=== PATIENT | male | born 1965 | race Caucasian/White ===

== ENCOUNTER → 2017-01-17 | Outpatient (CLI) | payer BC ==
[~2017-01-17] MED LIST: BND25X PO; ELUX1TAB2 PO; HYDR-3126 PO; METO-157 PO; ONDA8TAB7 PO; RANI300T2 PO; SINCALIDE INJ 1.3 MCG in SODIUM CHLORIDE 0.9% 100ML 100 ML IV ONE; SUMA100T16 PO
--- NOTE | 2017-01-17 13:11 | DIAGNOSTIC IMAGING REPORT ---
HEPATOBILIARY EF IMAGING CLINICAL HISTORY: 51 years-old Male presenting with ABD PAIN. TECHNIQUE: Dynamic imaging of the gallbladder was initiated 65 minutes after administration of 5.2 mCi of technetium 99m Choletec. Imaging was obtained every 5 minutes over a span of 40 minutes. 1.3 mcg of sincalide was injected 5 minutes prior to the start of imaging. The gallbladder ejection fraction was calculated. COMPARISON: CT from 2008.. FINDINGS: The hepatobiliary scan shows normal filling of the gallbladder at the start of imaging. Expected activity within the bowel also noted. Gallbladder ejection fraction measured at 96% (normal greater than 50%). IMPRESSION: 1. Normal gallbladder ejection fraction. No evidence of chronic cholecystitis. Electronically signed by: Angel Luis Tompkins M.D. 01/17/2017 1:10 PM Dictated Date/Time: 01/17/2017 1:08 PM
== END | disposition home or self-care (01) ==
LOC: C.NUCL 10:10
DX: R10.9 Unspecified abdominal pain (principal)

== ENCOUNTER → 2017-01-19 | Outpatient (CLI) | payer BC ==
[~2017-01-19] MED LIST changes: -SINCALIDE INJ 1.3 MCG in SODIUM CHLORIDE 0.9% 100ML 100 ML IV ONE
--- NOTE | 2017-01-19 12:44 | DIAGNOSTIC IMAGING REPORT ---
NUCLEAR GASTRIC EMPTYING STUDY HISTORY: Generalized abdominal pain. COMPARISON: Abdomen and pelvis CT 08/05/2008. TECHNIQUE: Following the oral administration of 1.1 mCi of technetium 99m sulfur colloid in egg sandwich and 8 ounces of water, static abdominal images are obtained anteriorly and posteriorly at 0 minutes, 1 hour, 2 hour, and 4 hour time intervals. Gastric emptying was calculated utilizing the geometric mean method. FINDINGS: There is approximately 78% activity remaining at the 1 hour time interval (normal is less than 90%), 41% remaining at the 2 hour time interval (normal is less than 60%), and 3% activity remaining at the 4 hour time interval (normal is less than 10%). IMPRESSION: No evidence for delayed gastric emptying. Electronically signed by: Tyson Whittington M.D. 01/19/2017 12:42 PM Dictated Date/Time: 01/19/2017 12:42 PM
== END | disposition home or self-care (01) ==
LOC: C.NUCL 08:12
DX: R10.9 Unspecified abdominal pain (principal)

== ENCOUNTER → 2017-03-17 | Outpatient (CLI) | payer BC ==
[2017-03-17 09:39] LABS: BASO % 0.2 %; BASO ABS # 0.01 K/uL (0-0.2); COMPLETE YES; EOS % 0.8 %; HEMATOCRIT 43.4 % (42-52); IG% 0.2 %; LYMPH % 30.5 %; LYMPH ABS # 1.82 K/uL (1.2-3.4); MEAN CELL VOLUME 91.2 fL (80-100); MEAN CORPUSCULAR HEMOGLOBIN 30.5 pg (25-34); MEAN CORPUSCULAR HGB CONC 33.4 g/dl (32-36); MEAN PLATELET VOLUME 10.6 fL (7.4-10.4); MONO % 6.4 %; NEUT % 61.9 %; PLATELET COUNT 271 K/uL (130-400); RED BLOOD COUNT 4.76 M/uL (4.7-6.1); WHITE BLOOD COUNT 5.96 K/uL (4.8-10.8)
[2017-03-17 10:09] LABS: ALT/SGPT 30 U/L (12-78); AMYLASE 47 U/L (25-115); BLOOD UREA NITROGEN 9 mg/dl (7-18); BUN/CREATININE RATIO 10.1 (10-20); CALCIUM 8.6 mg/dl (8.5-10.1); CARBON DIOXIDE 27 mmol/L (21-32); CHLORIDE 106 mmol/L (98-107); CREATININE 0.91 mg/dl (0.60-1.40); GLUCOSE 85 mg/dl (70-99); POTASSIUM 3.4 mmol/L (3.5-5.1); SODIUM 141 mmol/L (136-145)
[2017-03-17 10:12] LABS: ALB/GLOB RATIO 1.2 (0.9-2); ALKALINE PHOSPHATASE 63 U/L (45-117); AST/SGOT 16 U/L (15-37)
== END | disposition home or self-care (01) ==
LOC: C.LAB 07:31
DX: R10.9 Unspecified abdominal pain (principal)

== ENCOUNTER → 2017-05-18 | Outpatient (CLI) | payer BC ==
[2017-05-18 15:56] LABS: BASO % 0.2 %; BASO ABS # 0.02 K/uL (0-0.2); COMPLETE YES; EOS % 0.9 %; HEMATOCRIT 43.5 % (42-52); IG% 0.2 %; LYMPH % 31.5 %; LYMPH ABS # 2.79 K/uL (1.2-3.4); MEAN CELL VOLUME 91.6 fL (80-100); MEAN CORPUSCULAR HEMOGLOBIN 31.2 pg (25-34); MEAN PLATELET VOLUME 10.5 fL (7.4-10.4); MONO % 6.7 %; NEUT % 60.5 %; PLATELET COUNT 274 K/uL (130-400); RED BLOOD COUNT 4.75 M/uL (4.7-6.1); WHITE BLOOD COUNT 8.86 K/uL (4.8-10.8)
[2017-05-18 16:40] LABS: BLOOD UREA NITROGEN 14 mg/dl (7-18); BUN/CREATININE RATIO 16.2 (10-20); CALCIUM 8.9 mg/dl (8.5-10.1); CARBON DIOXIDE 25 mmol/L (21-32); CHLORIDE 105 mmol/L (98-107); CREATININE 0.87 mg/dl (0.60-1.40); GLUCOSE 76 mg/dl (70-99); POTASSIUM 3.8 mmol/L (3.5-5.1); SODIUM 136 mmol/L (136-145)
[2017-05-18 16:50] LABS: ALB/GLOB RATIO 1.2 (0.9-2); ALKALINE PHOSPHATASE 80 U/L (45-117); ALT/SGPT 53 U/L (12-78); AST/SGOT 22 U/L (15-37); C-REACTIVE PROTEIN < 0.29 mg/dl (0-0.29); THYROID STIMULATING HORMONE 0.325 uIu/ml (0.300-4.500)
== END | disposition home or self-care (01) ==
LOC: C.LAB 14:03
PROVIDERS: ATTEND Internal Medicine
DX: R11.2 Nausea with vomiting, unspecified (principal); R10.84 Generalized abdominal pain; R19.7 Diarrhea, unspecified

== ENCOUNTER 2018-07-24 06:51 | Observation (INO) ==
--- NOTE | 2018-07-07 08:42 | Anesthesiology Consultation ---
Date of Service July 07, 2018 Assessment & Plan (1) Encounter for pre-operative examination: Plan: - Discussed preop EKG with cardio (Dr. Graff); per verbal 07/10/18, preop EKG noting unusual p axis, possible atrial rhythm reviewed and did not feel further cardiac workup or evaluation needed. Chart Review Chart Review: Acceptable Risk for Surgery and Patient seen in Pre Admission Testing Teaching & Discussion Pre-Anesthesia Teaching/Discussion Notes: Instructed NPO after midnight before surgery,except medications with 15 cc of water. Medication instructions provided according to the PAT guidelines. History Surgery Operation Date: 07/24/18 08:20 Proposed Procedures p Laparoscopic Cholecystectomy, Possible Cholangiogram - Fracisco Izaguirre MD, FACS Height/Weight Height: 5 ft 8 in Weight: 69.1 kg Allergies Allergy/AdvReac Type Severity Reaction Status Date / Time Beta-Blockers AdvReac Unknown ADVISED TO Verified 07/07/18 08:41 (Beta-Adrenergic Bloc AVOID 2/2 MASTOCYTOSIS HX Medications Home Medications Medication Instructions Recorded Confirmed Last Taken diphenhydramine HCl [Benadryl] 50 mg PO HS #0 03/17/09 07/04/18 Unknown ondansetron HCl [Zofran] 8 mg PO TID PRN #0 tab 08/06/15 07/04/18 Unknown sumatriptan succinate 100 m PO DAILY PRN 30 Days #9 tab 08/06/15 07/04/18 Unknown hydroxyzine HCl 50 mg PO HS 30 Days #30 tab 07/16/16 07/04/18 Unknown metoclopramide HCl [Reglan] 10 mg PO Q6H PRN #6 tab 07/16/16 07/04/18 Unknown ranitidine HCl 300 mg PO BID #0 tab 07/16/16 07/04/18 Unknown Past Medical History Medical History Cyclic vomiting syndrome CONTROLLED X 1.5 WEEKS- IMPROVED WITH ZOFRAN PRN High cholesterol PER RECORDS Mastocytosis S/P MULTIPLE HOSPITALIZATIONS BETWEEN [id number]- NO RECENT ISSUES; MONITORED BY PCP Sleep apnea NON-COMPLIANT Past Surgical History Surgical History H/O vasectomy History of colonoscopy History of esophagogastroduodenoscopy (EGD) History of vascular access device 2/2 POOR VASCULAR ACCESS Past Anesthesia History No Hx of Anesthesia Complications and No Family Hx of Anesthesia Complications History of PONV No Motion Sickness Screening History of Motion Sickness: No Social History Smoking Status: Never smoker Do You Dip or Chew Tobacco: No Hx Alcohol Use: Yes Alcohol type: beer alcohol intake frequency: a few times a month Hx Substance Use: No substance use type: does not use Exercise / Class Metabolic Activity II 4-5 Yardwork/Stairs/Walk up hill Review of Systems Patient denies chest pain, shortness of breath, dyspnea on exertion, cough, wheezing, palpitations. Physical Exam Vital Signs VITALS BP 125/81 P 62 TEMP 97.8 SP02 98%RA RESP 18 PHYSICAL Full neck and c-spine range of motion. Full TMJ range of motion. TMD 3 finger breaths Mallampati Score 2 Dentition: intact Lungs: clear throughout to auscultation Cardiac: regular rate and rhythm, no murmurs noted Spine: normal Carotid arteries: negative bruit Extremities: no edema Trimmed ramirez. Testing Electrocardiogram Date: 07/07/18 Unusual p axis, possible ectopic atrial rhythm at 60bpm. Laboratory Results 07/07/18 09:08 07/07/18 09:08
--- NOTE | 2018-07-07 08:44 | PAT Medication Instructions ---
Medication Instructions Date of Service July 07, 2018 Home Medications diphenhydramine HCl [Benadryl] 50 mg PO HS ondansetron HCl [Zofran] 8 mg PO TID PRN sumatriptan succinate 100 m PO DAILY PRN hydroxyzine HCl 50 mg PO HS metoclopramide HCl [Reglan] 10 mg PO Q6H PRN ranitidine HCl 300 mg PO BID DO NOT take the morning of surgery metoclopramide HCl [Reglan] 10 mg PO Q6H PRN Take morning of surgery With a small sip of water, OTHERWISE NOTHING TO EAT OR DRINK AFTER MIDNIGHT: ondansetron HCl [Zofran] 8 mg PO TID PRN (if needed) sumatriptan succinate 100 m PO DAILY PRN (if needed) ranitidine HCl 300 mg PO BID Take evening before surgery diphenhydramine HCl [Benadryl] 50 mg PO HS ondansetron HCl [Zofran] 8 mg PO TID PRN (if needed) sumatriptan succinate 100 m PO DAILY PRN (if needed) hydroxyzine HCl 50 mg PO HS metoclopramide HCl [Reglan] 10 mg PO Q6H PRN (if needed) ranitidine HCl 300 mg PO BID Other Notes If you have any questions please call us at [phone] or [phone] or [phone] or [phone]
[2018-07-07 11:30] LABS: BUN Creatinine Ratio 17.8 (10-20); Calcium 9.1 mg/dl (8.5-10.1); Creatinine Clr Calc Pharmacy 91.9 ml/min; Est GFR (African American) 111.2; Potassium 3.8 mmol/L (3.5-5.1)
[2018-07-07 12:26] LABS: Basophils # (auto) 0.03 K/uL (0-0.2); Basophils % (auto) 0.4 %; Eosinophils # (auto) 0.05 K/uL (0-0.5); Eosinophils % (auto) 0.7 %; Hematocrit (blood only) 45.6 % (42-52); Hemoglobin 15.3 g/dL (14.0-18.0); Lymphocytes # (auto) 1.82 K/uL (1.2-3.4); Lymphocytes % (auto) 27.2 %; Mean Corpuscular Hgb Conc 33.6 g/dL (32-36); Mean Corpuscular Volume 93.1 fL (80-100); Mean Platelet Volume 11.1 fL (7.4-10.4); Monocytes # (auto) 0.47 K/uL (0.11-0.59); Neutrophils # (auto) 4.32 K/uL (1.4-6.5); Neutrophils % (auto) 64.7 %; Platelet Count 232 K/uL (130-400); RDW Standard Deviation 44.6 fL (36.4-46.3); White Blood Count 6.69 K/uL (4.8-10.8)
[~2018-07-24 06:51] MED LIST changes: -BND25X PO; -ELUX1TAB2 PO; -HYDR-3126 PO; +LR 15ML/HR IV SCH; -METO-157 PO; -ONDA8TAB7 PO; -RANI300T2 PO; -SUMA100T16 PO; +cefUROXime 1,500 MG in DEXTROSE 5% 100 ML IV SCH
[2018-07-24] MEDS ORDERED: MIDAZOLAM HCL 1 MG/ML 2ML VIAL ONE (07:39)
[2018-07-24] MEDS ORDERED: LIDOCAINE HCL 2% 2 ML VIAL/AMP(20MG/ML) INFIL ONE (07:39)
[2018-07-24] MEDS ORDERED: ROCURONIUM BROMIDE 10 MG/ML 5 ML VIAL ONE ×5 (07:39→07:40)
[2018-07-24] MEDS ORDERED: PROPOFOL IV EMULSION 10 MG/ML 20 ML VIAL IV ONE (07:39)
[2018-07-24] MEDS ORDERED: fentaNYL citrate 100 MCG/2 ML VIAL ONE ×2 (07:40→08:56)
[2018-07-24] MEDS ORDERED: ATROPINE SULFATE 0.1 MG/ML 10ML SYR IV PRN (08:14)
[2018-07-24] MEDS ORDERED: KETOROLAC 30 MG/ML VIAL IV PRN (08:14)
[2018-07-24] MEDS ORDERED: HYDROmorphone INJ 1 MG/ML SYRINGE IV PRN ×2 (08:14→11:00)
[2018-07-24] MEDS ORDERED: ONDANSETRON INJ 2 MG/ML 2 ML VIAL IV PRN (08:14)
--- NOTE | 2018-07-24 08:16 | History & Physical Bridge Note ---
Date of Service July 24, 2018 History & Physical Bridge Note I have examined the patient, reviewed the History & Physical and in the interval since the performance of the History & Physical I have noted the following changes of clinical significance: no changes noted
[2018-07-24] MEDS ORDERED: CONRAY 60% 50 ML VIAL ONE (08:27)
[2018-07-24] MEDS ORDERED: BUPIVACAINE 0.5 % 5 MG/1 ML MPF 30ML VIAL ONE (08:27)
[2018-07-24] MEDS ORDERED: DiphenhydrAMINE HCL 50 MG/ML VIAL ONE (08:48)
[2018-07-24] MEDS ORDERED: raNITIdine HCl 25 MG/ML VIAL ONE (08:48)
[2018-07-24] MEDS ORDERED: HYDROCORTISONE SOD SUCCINATE 100 MG/2 ML VIAL ONE (08:48)
[2018-07-24] MEDS ORDERED: GLYCOPYRROLATE 0.2 MG/ML VIAL ONE (09:01)
[2018-07-24] MEDS ORDERED: NEOSTIGMINE METHYLSULFATE 5 MG/5 ML SYR ONE (09:01)
--- NOTE | 2018-07-24 09:28 | Operative Report ---
Post Operative Report Pre & Post Diagnosis Operation Date: 07/24/18 08:40 Pre-Op Diagnosis: Biliary Colic Post-Op Diagnosis: Biliary Colic same and chronic cholecystitis, adhesions Procedure Operation Date: 07/24/18 08:40 Actual Procedures p Laparoscopic Cholecystectomy with Cholangiogram(Not Applicable) - Fracisco Izaguirre MD, FACS same Surgeon Fracisco Izaguirre MD, FACS [employer] Abdiel Polk Estimated Blood Loss 10 Findings Consistent with Post-Op Diagnosis Specimens gallbladder Description of Procedure see dictated note I attest to the content of the Intraoperative Record and any orders documented therein. Any exceptions are noted below.
[2018-07-24] MEDS ORDERED: ACETAMINOPHEN 1,000 MG/100 ML VIAL IV ONE (09:29)
[2018-07-24] MEDS ORDERED: ACETAMINOPHEN 1000 MG/100 ML IV IV ONE (09:59)
--- NOTE | 2018-07-24 10:10 | Fluoroscopy Report ---
[place] cholangiogram OR HISTORY: 52 years-old Male IOC intraoperative cholangiogram COMPARISON: CT abdomen and pelvis 08/05/2008 TECHNIQUE: 4 spot fluoroscopic images of the abdominal right upper quadrant were obtained utilizing 1 5.8 seconds fluoroscopy time FINDINGS: Cannulation of the cystic duct is noted with contrast injection. Ill-defined filling defects within t he intrahepatic biliary tree suggestive of air bubbles. Mild dilation of the common bile duct is sugg ested. Additionally there is abrupt luminal narrowing about the distal common bile duct suggestive of underlying lesion, stricture or choledocholithiasis. Contrast is noted spilling into the duodenum. N o extravasation of contrast identified. IMPRESSION: Fluoroscopic assistance as above. Please see procedural report for further details. The above report was generated using voice recognition software. It may contain grammatical, syntax o r spelling errors. Electronically signed by: Ovi Clement M.D. 07/24/2018 10:08 AM
--- NOTE | 2018-07-24 10:17 | Operative Report ---
DATE OF OPERATION: 07/24/2018 NAME OF OPERATION: Laparoscopic cholecystectomy with lysis of adhesions and cholangiogram. STAFF SURGEON: Fracisco Izaguirre MD MECHANICAL MAINTENANCE INSTRUCTOR: Macey Polk PA-C ANESTHESIA: General. DESCRIPTION OF PROCEDURE: The patient was brought in the operating room, placed on the operative operating room table in supine position. His abdomen was prepped and draped in usual fashion. Pneumatic stockings, orogastric tube were placed. My librarian assistant, Macey Polk helped with prepping, draping, removal of the gallbladder, cholangiogram, and closure of the wounds. Initially 0.5% plain Marcaine was used to anesthetize all incisions. An incision made above the umbilicus, carrying dissection down to the fascia, placing a Veress needle producing pneumoperitoneum. An 11-mm port placed this level and then under visualization, three 5 mm ports placed, 1 cephalad and 2 laterally. Gallbladder was retracted. It was mildly distended. There were adhesions to the gallbladder consistent with chronic inflammation. These were taken down. The gallbladder was aspirated of bile. Dissection carried out at the edwige hepatis, identifying the cystic duct and cystic artery. The cystic duct was clipped next to the gallbladder then partially opened. The catheter placed. Cholangiogram performed. The patient did have some mild stenosis distally in the duct; however, there was good flow into the duodenum. The duct was mildly dilated. There were no defects. The cystic duct was then clipped and transected. The cystic artery identified, clipped, and transected, then the gallbladder dissected away from the liver bed in the usual fashion. It was placed in an Endobag. After appropriate hemostasis and irrigation, the Endobag was removed through the umbilical site. All ports were then removed. The fascia at the umbilicus closed using interrupted 0 Vicryl suture and then the skin reapproximated using subcuticular 4-0 Monocryl. Dermabond was used on all except 1 cephalad 5 mm port site, which Steri-Strips were placed. The patient transferred to recovery room in stable condition. I attest to the content of the Intraoperative Record and any orders documented therein. Any exception s are noted below.
--- NOTE | 2018-07-24 10:55 | Anesthesiology Progress Note ---
Date of Service July 24, 2018 Anesthesia Post Procedure Vital Signs Vital Signs: Temp Pulse Pulse Pulse Resp BP BP 07/24/18 10:36 58 L 17 121/79 07/24/18 10:35 59 L 16 07/24/18 10:30 55 L 12 121/76 07/24/18 10:26 55 L 10 L 113/69 07/24/18 10:25 65 13 07/24/18 10:21 59 L 13 121/77 07/24/18 10:20 71 16 07/24/18 10:15 64 18 118/83 07/24/18 10:12 63 19 07/24/18 10:11 62 14 123/79 07/24/18 10:10 36.4 C L 63 64 12 123/79 07/24/18 10:07 62 15 07/24/18 10:06 60 16 123/80 07/24/18 10:04 67 15 126/86 07/24/18 10:00 62 16 07/24/18 09:56 56 L 17 107/67 07/24/18 09:55 58 L 19 07/24/18 09:51 61 20 102/62 07/24/18 09:50 64 17 07/24/18 09:45 36.3 C L 73 74 14 108/61 108/61 07/24/18 07:10 36.8 C 80 18 136/87 Pulse Ox 07/24/18 10:36 99 07/24/18 10:35 99 07/24/18 10:30 98 07/24/18 10:26 99 07/24/18 10:25 99 07/24/18 10:21 98 07/24/18 10:20 100 07/24/18 10:15 99 07/24/18 10:12 99 07/24/18 10:11 99 07/24/18 10:10 99 07/24/18 10:07 99 07/24/18 10:06 97 07/24/18 10:04 98 07/24/18 10:00 100 07/24/18 09:56 100 07/24/18 09:55 100 07/24/18 09:51 100 07/24/18 09:50 100 07/24/18 09:45 99 07/24/18 07:10 98 Notes Mental Status: alert / awake / arousable Patient Amnestic to Procedure: Yes Nausea / Vomiting: adequately controlled Pain: adequately controlled Airway Patency, RR, SpO2: stable & adequate BP & HR: stable & adequate Hydration State: stable & adequate Anesthetic Complications: no major complications apparent
[2018-07-24] MEDS ORDERED: HYDROmorphone INJ 0.5 MG/0.5 ML SYR IV PRN (11:00)
[2018-07-24] MEDS ORDERED: HYDROCODONE/ACETAMOPHEN 5/325MG TAB PO PRN (11:00)
[2018-07-24] MEDS ORDERED: PROMETHAZINE HCL 12.5 MG in SODIUM CHLORIDE 0.9% 50 ML IV PRN (11:00)
[2018-07-24] MEDS ORDERED: SODIUM CHLORIDE 0.9% 1000ML 1,000 ML IV SCH (11:00)
[2018-07-24] MEDS ORDERED: PROMETHAZINE HCL 25 MG in SODIUM CHLORIDE 0.9% 50 ML IV PRN (11:00)
[2018-07-24] MEDS: ONDANSETRON INJ 2 MG/ML 2 ML VIAL IV PRN ×2 (11:26→19:00)
[2018-07-24 14:03] LABS: Basophils # (auto) 0.01 K/uL (0-0.2); Basophils % (auto) 0.1 %; Hematocrit (blood only) 42.1 % (42-52); Hemoglobin 14.5 g/dL (14.0-18.0); Immature Granulocytes # (auto) 0.03 K/uL (0.00-0.02); Immature Granulocytes % (auto) 0.2 %; Lymphocytes # (auto) 0.88 K/uL (1.2-3.4); Lymphocytes % (auto) 6.5 %; Mean Corpuscular Volume 91.1 fL (80-100); Mean Platelet Volume 9.8 fL (7.4-10.4); Monocytes # (auto) 0.49 K/uL (0.11-0.59); Monocytes % (auto) 3.6 %; Neutrophils # (auto) 12.21 K/uL (1.4-6.5); Neutrophils % (auto) 89.6 %; Platelet Count 233 K/uL (130-400); RDW Coefficient of Variation 12.8 % (11.5-14.5); Red Blood Count 4.62 M/uL (4.7-6.1); White Blood Count 13.62 K/uL (4.8-10.8)
[2018-07-24 14:04] LABS: Mean Corpuscular Hgb Conc 34.4 g/dL (32-36)
[2018-07-24 14:14] LABS: Prothrombin Time 10.5 Seconds (9.0-12.0)
[2018-07-24 14:23] LABS: Albumin Level 3.8 gm/dl (3.4-5.0); BUN Creatinine Ratio 12.3 (10-20); Calcium 8.6 mg/dl (8.5-10.1); Creatinine Clr Calc Pharmacy 63.2 ml/min; Est GFR (African American) 72.5; Est GFR (Non-African American) 62.6; Potassium 3.9 mmol/L (3.5-5.1)
[2018-07-24 14:26] LABS: Albumin Globulin Ratio 1.1 (0.9-2); Bilirubin,Total 0.5 mg/dl (0.2-1); Globulin 3.3 gm/dl (2.5-4.0); Total Protein 7.1 gm/dl (6.4-8.2)
--- NOTE | 2018-07-24 14:40 | Gastrointestinal Consultation ---
Date of Consultation July 24, 2018 Assessment & Plan (1) Abnormal findings on imaging test: Mr. Shen is a 52 yr old male who underwent planned lap choley today with suggesting of suggestion of narrowing of the distal bile duct on OR cholangiogram. Differentials considered are choledocholithiasis, biliary sludge , sphincter of Oddi dysfunction, bile duct structure from other such as malignancy. Plan: MRCP Diet per surgery Further GI imaging or procedures dependent on results of MRCP. Supervising Physician Co-Signing Physician Notes I have seen and examined the patient with JULIÁN Landeros. 52 yo male with a history of mastocytosis, prior port placement in his upper neck for having poor iv access, social drinker, admitted post outpatient cholecystectomy for a +ioc. He is asymptomatic at this time in regards to fevers, chills, slight abdominal pain around incision site, no nausea, vomiting. GB surgery this am. Reports intermittent ruq pain for years. MRCP for further evaluation of IOC, further GI procedures if needed thereafter. Trend lft's. History of Present Illness Reason for Consultation: abnormal OR cholangiogram Requesting Physician: Dr. Fracisco Izaguirre Attending Physician: Fracisco Izaguirre MD, [facility] History of Present Illness Mr. Rashawn Shen is a 52-year-old male with a history of chronic macrocytosis and chronic abdominal pain who underwent cholecystectomy today by Dr. Fracisco Izaguirre. GI is consulted by the surgeon due to abnormal bile duct on the OR cholangiogram. Specifically there was a distal bile duct stricture. The patient tells that he has chronic abdominal pain every day for many years. He did not mention a change in that pain recently or that it is postprandial. He denies any unexplained weight loss fevers, chills, sweats, dark urine, yellow skin or eyes. He is seen and examined while he is resting postoperatively on a medical surgical nursing unit. He is awake alert oriented and hemodynamically stable. Allergies Allergy/AdvReac Type Severity Reaction Status Date / Time Beta-Blockers AdvReac Unknown ADVISED TO Verified 07/24/18 07:14 (Beta-Adrenergic Bloc AVOID 2/2 MASTOCYTOSIS HX Home Medications Home Medications Medication Instructions Recorded Confirmed Type diphenhydramine HCl [Benadryl] 50 mg PO HS #0 03/17/09 07/24/18 History ondansetron HCl [Zofran] 8 mg PO TID PRN #0 tab 08/06/15 07/24/18 History sumatriptan succinate 100 m PO DAILY PRN 30 Days #9 tab 08/06/15 07/24/18 History hydroxyzine HCl 50 mg PO HS 30 Days #30 tab 07/16/16 07/24/18 History metoclopramide HCl [Reglan] 10 mg PO Q6H PRN #6 tab 07/16/16 07/24/18 History ranitidine HCl 300 mg PO BID #0 tab 07/16/16 07/24/18 History Patient History Social History Current Living Situation: Spouse Other Information That Helps Us Care for You: No Feels Safe at Home: Yes Safety Concerns: Feels Safe At This Time Smoking Status: Never smoker Do You Dip or Chew Tobacco: No Hx Alcohol Use: Yes Alcohol type: beer Alcohol Intake Frequency: a few times a month Hx Substance Use: No Beliefs That Will Affect Care: None Preferred Language: Irish Communication Ability: Effective Protective Signal Installer Helper Required: No Review of Systems Constitutional: no fever, no chills and no weight loss Respiratory: no cough, no chest congestion, no dyspnea and no dyspnea on exertion Cardiovascular: no chest pain, no dyspnea at rest, no palpitations, no lightheadedness and no syncope Gastrointestinal: as per Subjective / HPI; no nausea and no vomiting Genitourinary (Male): no dysuria and no hematuria Musculoskeletal: no back pain, no joint pain and no myalgia Integumentary: no rash and no lesions Neurologic: no gait abnormality, no falls and no tremor(s) Psychiatric: no change in appetite Hematologic / Lymphatic: no easy bleeding, no easy bruising and no lymphadenopathy Physical Exam 2 Vital Signs (Past 24 Hours): Last Vital Signs Temp 36.9 C 07/24/18 13:48 Pulse 88 07/24/18 13:48 Resp 16 07/24/18 13:48 BP 129/75 07/24/18 13:48 Pulse Ox 96 07/24/18 13:48 Constitutional: WD/WN, vitals as above well developed and well nourished; no acute distress Eyes: PERRL, conjunctivae normal, anicteric sclerae ENMT: external ear and nose normal, oropharynx normal Neck: trachea midline, no thyromegaly Respiratory: normal respiratory effort, lungs clear to auscultation Cardiovascular: RRR, no murmur, no edema Gastrointestinal (Abdomen): Percussion/Palpation: + abdomen tender (mild operative discomfort. Dressing dry, intact over the RUQ) and abdomen soft; no ascites Skin: no rashes, warm and dry no jaundice Neurologic: PERRL, EOMI, accommodation nl, no face palsy, no dysarthria Psychiatric: A+Ox3, euthymic affect Results & Data Laboratory Results WBC 13, Hb 14, Hct 42. T Bili 0.5, Hb 18, Hct36, Alk Phos 64 Diagnostic Findings OR Cholangiogram Ill-defined filling defects within the intrahepatic biliary tree suggestive of air bubbles. Mild dilation of the common bile duct is suggested. Additionally there is abrupt luminal narrowing about the distal common bile duct suggestive of underlying lesion, stricture or choledocholithiasis. Contrast is noted spilling into the duodenum. No extravasation of contrast identified.
--- NOTE | 2018-07-24 20:14 | XRay Report ---
BONY ORBITS 3 VIEWS CLINICAL HISTORY: MRI clearance. FINDINGS: 3 views of the bony orbits are obtained. No prior studies are available for comparison at t he time of dictation. There is no radiodense/metallic foreign body seen in the region of the bony orb its. The bony orbits are intact as imaged. The visualized paranasal sinuses and the mastoid air cells appear clear. The imaged calvarium appears intact. IMPRESSION: There is no radiodense/metallic foreign body seen in the region of the bony orbits. Electronically signed by: Tacos French M.D. 07/24/2018 8:13 PM
--- NOTE | 2018-07-24 21:31 | Magnetic Resonance Report ---
MRCP CLINICAL HISTORY: Chronic generalized abdominal pain. Vomiting. Status post cholecystectomy. COMPARISON STUDY: Abdominal CT dated 08/05/2008. TECHNIQUE: Abdominal MRCP is performed utilizing various T2 sequences in the axial and coronal planes . IV contrast was not administered for this examination. 3-D reformats are created and assessed. FINDINGS: The gallbladder is surgically absent. Trace fluid is noted in the gallbladder fossa, and likely on a postoperative basis. There is mild central intrahepatic biliary ductal dilatation, similar in appeara nce to the 2009 [address] scan. The common bile duct measures up to 9 mm in diameter. There are no filling d efects to indicate choledocholithiasis. There is also dilatation of the pancreatic duct near the panc reatic head. This measures up to 6 mm. The pancreatic duct in the body and tail is normal in caliber. These findings are also similar to the 2009 CT scan. Small hepatic cysts measure up to 1.8 cm. The hepatic parenchyma is otherwise normal in appearance. A drenal glands are grossly normal. The kidneys are normal in size and without hydronephrosis. Scattere d subcentimeter cysts are observed. 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 The pancreatic parenchyma is otherwise normal in appearance. There is no bowel obstruction. There is no abdominal ascites. No pleural effusion is identified. IMPRESSION: 1. The gallbladder is surgically absent. Trace fluid in the gallbladder fossa is likely related to re cent surgery. 2. Intra and extrahepatic biliary ductal dilatation has not significantly changed from the 08/05/2008 C T scan. This is of indeterminant etiology and significance. 3. There is no evidence of choledocholithiasis. 4. The proximal pancreatic duct above the ampulla is dilated, measuring up to 6 mm, with a rather abr upt transition to normal caliber mid to distal pancreatic duct. This findings has also not significan tly changed from 2009. This could be further assessed with ERCP if clinically warranted. 5. There are at least 5 tiny cystic foci within the pancreatic head end body, measuring up to 4 mm. 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 Electronically signed by: Tacos French M.D. 07/24/2018 11:21 PM
[2018-07-24] MEDS: HYDROCODONE/ACETAMOPHEN 5/325MG TAB PO PRN (21:52)
[2018-07-25] MEDS: HYDROCODONE/ACETAMOPHEN 5/325MG TAB PO PRN ×2 (04:57→10:17)
--- NOTE | 2018-07-25 06:06 | Progress Note ---
Date of Service July 25, 2018 Assessment & Plan (1) Chronic cholecystitis: s/p lap marleny, cholangiogram- distal CBD stenosis MRI done- GI evaluation in progress- possible d/c later today unless additional inpatient studies needed Subjective pt stable- pain controlled MRI done- no overt mass seen Physical Exam 2 Vital Signs (Past 24 Hours): Last Vital Signs Temp 36.9 C 07/25/18 03:24 Pulse 85 07/25/18 03:24 Resp 16 07/25/18 03:24 BP 91/51 L 07/25/18 03:24 Pulse Ox 95 07/25/18 03:24 incisions intact
--- NOTE | 2018-07-25 07:04 | Gastrointestinal Consultation ---
Date of Consultation July 24, 2018 Assessment & Plan (1) Abnormal findings on imaging test: Mr. Shen is a 52 yr old male who underwent planned lap choley today with suggesting of suggestion of narrowing of the distal bile duct on OR cholangiogram. Differentials considered are choledocholithiasis, biliary sludge , sphincter of Oddi dysfunction, bile duct structure from other such as malignancy. Plan: MRCP Diet per surgery Further GI imaging or procedures dependent on results of MRCP. Supervising Physician Co-Signing Physician Notes I have seen and examined the patient on 07/24/18. + ioc - MRCP ordered for further work-up on 07/24/18. History of Present Illness Attending Physician: Fracisco Izaguirre MD, FACS Allergies Allergy/AdvReac Type Severity Reaction Status Date / Time Beta-Blockers AdvReac Unknown ADVISED TO Verified 07/24/18 07:14 (Beta-Adrenergic Bloc AVOID 2/2 MASTOCYTOSIS HX Home Medications Home Medications Medication Instructions Recorded Confirmed Type diphenhydramine HCl [Benadryl] 50 mg PO HS #0 03/17/09 07/24/18 History ondansetron HCl [Zofran] 8 mg PO TID PRN #0 tab 08/06/15 07/24/18 History sumatriptan succinate 100 m PO DAILY PRN 30 Days #9 tab 08/06/15 07/24/18 History hydroxyzine HCl 50 mg PO HS 30 Days #30 tab 07/16/16 07/24/18 History metoclopramide HCl [Reglan] 10 mg PO Q6H PRN #6 tab 07/16/16 07/24/18 History ranitidine HCl 300 mg PO BID #0 tab 07/16/16 07/24/18 History hydrocodone-acetaminophen [[place]] 1 - 2 tab PO Q6H #40 tab 07/24/18 Rx Patient History Social History Current Living Situation: Spouse Other Information That Helps Us Care for You: No Feels Safe at Home: Yes Safety Concerns: Feels Safe At This Time Smoking Status: Never smoker Do You Dip or Chew Tobacco: No Hx Alcohol Use: Yes Alcohol type: beer Alcohol Intake Frequency: a few times a month Hx Substance Use: No Beliefs That Will Affect Care: None Preferred Language: Israeli Communication Ability: Effective Consulting Psychologist Required: No Review of Systems Gastrointestinal: as per Subjective / HPI; no nausea and no vomiting Physical Exam 2 Vital Signs (Past 24 Hours): Last Vital Signs Temp 36.9 C 07/24/18 13:48 Pulse 88 07/24/18 13:48 Resp 16 07/24/18 13:48 BP 129/75 07/24/18 13:48 Pulse Ox 96 07/24/18 13:48 Constitutional: WD/WN, vitals as above well developed and well nourished; no acute distress Eyes: PERRL, conjunctivae normal, anicteric sclerae ENMT: external ear and nose normal, oropharynx normal Neck: trachea midline, no thyromegaly Respiratory: normal respiratory effort, lungs clear to auscultation Cardiovascular: RRR, no murmur, no edema Gastrointestinal (Abdomen): Percussion/Palpation: + abdomen tender (mild operative discomfort. Dressing dry, intact over the RUQ) and abdomen soft; no ascites Skin: no rashes, warm and dry no jaundice Neurologic: PERRL, EOMI, accommodation nl, no face palsy, no dysarthria Psychiatric: A+Ox3, euthymic affect
--- NOTE | 2018-07-25 07:11 | Gastroenterology Progress Note ---
Date of Service July 25, 2018 Assessment & Plan (1) Abnormal findings on imaging test: Mr. Shen is a 52 yr old male who underwent planned lap choley yesterday with suggesting of suggestion of narrowing of the distal bile duct on OR cholangiogram. MRCP with chronically dilated CBD and pancreatic duct and small pancreatic cysts. Choledocholithiasis was ruled out. Malignancy is very unlikely. His pancreatic duct changes may be related to his chronic abdominal pain. Plan: Recommend OP EUS. Our office will call to arrange. No further GI imaging and no GI procedures planned during this admission. Further management per surgery. Subjective MR. Shen is a 52 yr old male who underwent lap choley with irregular appearance of CBD on OR cholangiogram. MRCP yesterday w/o choledocholithiasis and with dilated pancreatic duct and CBD, though chronic, since 2008. Today, pt awake, alert, hemodynamically stable. Gastrointestinal: as per Subjective / HPI; no nausea and no vomiting Physical Exam Vital Signs (Past 24 Hours): Last Vital Signs Temp 36.9 C 07/25/18 03:24 Pulse 85 07/25/18 03:24 Resp 16 07/25/18 03:24 BP 91/51 L 07/25/18 03:24 Pulse Ox 95 07/25/18 03:24 Constitutional: WD/WN, vitals as above well developed and well nourished; no acute distress Eyes: PERRL, conjunctivae normal, anicteric sclerae ENMT: external ear and nose normal, oropharynx normal Neck: trachea midline, no thyromegaly Respiratory: normal respiratory effort, lungs clear to auscultation Cardiovascular: RRR, no murmur, no edema Gastrointestinal (Abdomen): Percussion/Palpation: + abdomen tender (mild operative discomfort. Dressing dry, intact over the RUQ) and abdomen soft; no ascites Skin: no rashes, warm and dry no jaundice Neurologic: PERRL, EOMI, accommodation nl, no face palsy, no dysarthria Psychiatric: A+Ox3, euthymic affect Results & Data Diagnostic Findings MRCP 1. The gallbladder is surgically absent. Trace fluid in the gallbladder fossa is likely related to recent surgery. 2. Intra and extrahepatic biliary ductal dilatation has not significantly changed from the 08/05/2008 CT scan. This is of indeterminant etiology and significance. 3. There is no evidence of choledocholithiasis. 4. The proximal pancreatic duct above the ampulla is dilated, measuring up to 6 mm, with a rather abrupt transition to normal caliber mid to distal pancreatic duct. This findings has also not significantly changed from 2009. This could be further assessed with ERCP if clinically warranted. 5. There are at least 5 tiny cystic foci within the pancreatic head end body, measuring up to 4 mm. 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
--- NOTE | 2018-07-25 07:41 | Anesthesiology Progress Note ---
Date of Service July 25, 2018 Anesthesia Post Procedure Vital Signs Vital Signs: Temp Pulse Pulse Pulse Resp BP BP 07/25/18 03:24 36.9 C 85 16 91/51 L 07/24/18 23:20 36.3 C L 71 16 111/69 07/24/18 15:52 36.8 C 76 18 125/71 07/24/18 13:48 36.9 C 88 16 129/75 07/24/18 12:50 102 H 18 132/84 07/24/18 11:50 36.5 C 75 16 129/78 07/24/18 11:17 54 L 16 129/76 07/24/18 10:50 36.4 C L 57 L 16 129/83 07/24/18 10:36 58 L 17 121/79 07/24/18 10:35 59 L 16 07/24/18 10:30 55 L 12 121/76 07/24/18 10:26 55 L 10 L 113/69 07/24/18 10:25 65 13 07/24/18 10:21 59 L 13 121/77 07/24/18 10:20 71 16 07/24/18 10:15 64 18 118/83 07/24/18 10:12 63 19 07/24/18 10:11 62 14 123/79 07/24/18 10:10 36.4 C L 63 64 12 123/79 07/24/18 10:07 62 15 07/24/18 10:06 60 16 123/80 07/24/18 10:04 67 15 126/86 07/24/18 10:00 62 16 07/24/18 09:56 56 L 17 107/67 07/24/18 09:55 58 L 19 07/24/18 09:51 61 20 102/62 07/24/18 09:50 64 17 07/24/18 09:45 36.3 C L 73 74 14 108/61 108/61 Pulse Ox 07/25/18 03:24 95 07/24/18 23:20 95 07/24/18 15:52 95 07/24/18 13:48 96 07/24/18 12:50 95 07/24/18 11:50 94 07/24/18 11:17 95 07/24/18 10:50 97 07/24/18 10:36 99 07/24/18 10:35 99 07/24/18 10:30 98 07/24/18 10:26 99 07/24/18 10:25 99 07/24/18 10:21 98 07/24/18 10:20 100 07/24/18 10:15 99 07/24/18 10:12 99 07/24/18 10:11 99 07/24/18 10:10 99 07/24/18 10:07 99 07/24/18 10:06 97 07/24/18 10:04 98 07/24/18 10:00 100 07/24/18 09:56 100 07/24/18 09:55 100 07/24/18 09:51 100 07/24/18 09:50 100 07/24/18 09:45 99 Notes Mental Status: alert / awake / arousable and participated in evaluation Patient Amnestic to Procedure: Yes Nausea / Vomiting: adequately controlled Pain: adequately controlled Airway Patency, RR, SpO2: stable & adequate BP & HR: stable & adequate Hydration State: stable & adequate Anesthetic Complications: no major complications apparent and Pt Satisfied with anesthetic care
[2018-07-25] MEDS ORDERED: SUMAtriptan succinate 100 MG TAB PO PRN (08:30)
--- NOTE | 2018-07-26 07:36 | Discharge Summary ---
Date of Service July 29, 2018 Discharge Data Consultations 07/24/18 09:39 Consult Gastroenterology Routine Procedures Performed Operation Date: 07/24/18 08:40 Actual Procedures p Laparoscopic Cholecystectomy with Intraoperative Cholangiogram(Not Applicable) - Fracisco Izaguirre MD, FACS Hospital Course (1) Chronic cholecystitis: see dictation
--- NOTE | 2018-07-27 12:31 | Discharge Summary ---
PRINCIPAL DIAGNOSES: Chronic cholecystitis and common bile duct stenosis. PROCEDURES: The patient underwent laparoscopic cholecystectomy and also MRI scan. HISTORY OF PRESENT ILLNESS: The patient is a 52-year-old male who has been having intermittent upper abdominal pain, brought in for elective gallbladder surgery. HOSPITAL COURSE: On 07/24/2018, he underwent laparoscopic cholecystectomy with cholangiogram. The gallbladder operation went well. He did have evidence of a relatively long stenosis of his distal common bile duct. Postoperatively, he did well. Gastroenterology was asked to see the patient. They performed an MRI which did not see any specific mass and was felt stable for discharge home and to be followed as an outpatient for possible endoscopic ultrasound. He is also to be seen in the surgical clinic within 1-2 weeks.
== END 2018-07-25 12:07 | disposition home or self-care (01) ==
LOC: 3N 06:51 → ASU 06:51